=== PATIENT | female | born 1985 | race Caucasian/White ===

== ENCOUNTER 2021-12-20 15:28 | Emergency (ER) | payer OTHER, SELFPAY ==
--- NOTE | ~2021-12-20 | CT_ITS ---
EXAMINATION: CT ANGIOGRAM HEAD CT ANGIOGRAM NECK CLINICAL INFORMATION: Headaches. Dizziness. COMPARISON: None available. TECHNIQUE: Initial noncontrast vector control specialist imaging of the head and neck was performed. Noncontrast head CT was also performed. Test bolus sequences followed by intravenous administration 70 mL of Omnipaque 350. Helical imaging was performed in the axial plane from the aortic arch to the skull vertex. Delayed postcontrast imaging of the head was also performed. The data was processed at the distribution engineering technologist's workstation for generation of MIP sequences. Angled MIPs and volume rendered reformatted images were also generated at an offline 3D workstation. Stenoses are assessed in accordance with NASCET criteria unless otherwise indicated. This CT examination was performed using dose optimization techniques as appropriate, variously including the following: *Automated exposure control. *Adjustment of mA and/or kV according to patient size (this includes techniques or standardized protocols for targeted exams where dose is matched to indication/reason for exam; i.e. extremities or head). *Use of iterative reconstruction technique. DLP: 2559 mGy-cm FINDINGS: CT Head: There is no evidence of acute intracranial hemorrhage or edematous territorial infarction. There is no abnormal attenuation within the brain parenchyma. Reis-white matter differentiation is preserved. The ventricles are normal in size and configuration. No evidence for obstructive hydrocephalus. The cerebellar tonsils are mildly low lying, positioned 0.2 cm below the foramen magnum. The CSF space of the foramen magnum is maintained. No abnormal mass effect or midline shift. No extra-axial fluid collections. No pathologic intra-axial enhancement or regional oligemia. No acute soft tissue or osseous abnormalities. Mild mucosal thickening of the paranasal sinuses. The mastoid air cells and middle ear cavities are clear. Multifocal odontogenic enamel erosions. Prominent periapical lucencies associated with the maxillary right 2nd molar. CT Neck: The thyroid gland and remaining cervical soft tissues are within normal limits. No significant abnormalities of the cervical spine. CT Upper Chest: The visualized lung apices and upper mediastinum are within normal limits. Neck CTA: Aortic Arch: On this nongated study, the ascending aorta appears mildly prominent, measuring up to 3.8 cm in cross-sectional diameter. Normal contour and caliber of the aortic arch. Classic 3 vessel branching pattern of the aortic arch. Great Vessel Origins: No significant stenosis of the branch origins. Right Common Carotid Artery: No focal stenosis or occlusion. Cervical Right Internal Carotid Artery: Normal opacification without focal stenosis or occlusion. Left Common Carotid Artery: No focal stenosis or occlusion. Cervical Left Internal Carotid Artery: Normal opacification without focal stenosis or occlusion. Cervical Right Vertebral Artery: Co-dominant. No focal stenosis or occlusion. Cervical Left Vertebral Artery: Co-dominant. No focal stenosis or occlusion. Brain CTA: Intracranial Internal Carotid Arteries: No focal stenosis or occlusion. Right Anterior Cerebral Artery: Normal A1 segment. Normal opacification of the distal ROBB segments. Left Anterior Cerebral Artery: Normal A1 segment. Normal opacification of the distal ROBB segments. Anterior Communicating Artery: Normal. Right Middle Cerebral Artery: Normal M1 segment of the MCA without focal stenosis or occlusion. Multifocal concentric narrowings of the M2 and M3 branches without occlusion. Left Middle Cerebral Artery: Normal M1 segment of the MCA without focal stenosis or occlusion. Multifocal concentric narrowings of the M2 and M3 branches without occlusion. Right Vertebral Artery: Normal V4 segment. The posterior inferior cerebellar artery is not well opacified; however, there is no CT evidence of acute occlusion. Left Vertebral Artery: Normal V4 segment. Normal opacification of the proximal segments of the posterior inferior cerebellar artery. Basilar Artery: Normal without focal stenosis or occlusion. Normal appearance of the proximal superior cerebellar arteries. Right Posterior Cerebral Artery: Normal P1 segment. Moderate narrowing of the P3 segment without occlusion. Otherwise, normal Opacification of the distal CIGARETTE TESTER segments. Left Posterior Cerebral Artery: Normal P1 segment. Normal opacification of the distal CIGARETTE TESTER segments. Normal opacification of the superior sagittal, straight, transverse, and sigmoid sinuses. CT/CT angio head neck IMPRESSION: 1. No evidence of acute intracranial hemorrhage or edematous territorial infarction. 2. CTA of the head and neck without proximal occlusion or flow-limiting stenosis. 3. Multifocal moderate concentric narrowings of the M2 and M3 branches of the MCAs bilaterally and P3 segment of the right CIGARETTE TESTER. This appearance is nonspecific but may indicate an underlying vasculitis/vasculopathy. 4. The ascending aorta appears mildly prominent on this nongated study, measuring up to 3.8 cm in cross-sectional diameter. This may be better assessed on dedicated aortic evaluation.
--- NOTE | ~2021-12-20 | CT_ITS ---
EXAMINATION: CT ABDOMEN AND PELVIS WITH CONTRAST CLINICAL INFORMATION: Nausea vomiting and diarrhea COMPARISON: None TECHNIQUE: Multidetector volumetric images were obtained from the superior aspect of the liver through the pubic symphysis following administration 70 mL of Omnipaque 350 intravenous contrast. Sagittal and coronal reformatted images were obtained on the technologist's workstation. Oral contrast: No This CT examination was performed using dose optimization techniques as appropriate, variously including the following: *Automated exposure control *Adjustment of mA and/or kV according to patient size (this includes techniques or standardized protocols for targeted exams where dose is matched to indication/reason for exam; i.e. extremities or head) *Use of iterative reconstruction technique DLP: 1124.78+23.11 mGy-cm FINDINGS: LUNG BASES: The visualized lung bases are unremarkable. LIVER, GALLBLADDER, AND BILIARY TREE: The liver is normal in size, shape, and attenuation. No focal hepatic lesion or biliary ductal dilatation is present. The gallbladder is unremarkable with no evidence of radiopaque gallstones, gallbladder wall thickening, or obvious pericholecystic inflammatory changes. PANCREAS: Unremarkable. SPLEEN: Unremarkable. ADRENAL GLANDS: Unremarkable. KIDNEYS AND URETERS: The kidneys are normal in size, shape, and attenuation. No hydronephrosis, hydroureter, or calculi seen. No perinephric stranding. BLADDER: Unremarkable. GASTROINTESTINAL TRACT: The small and large bowel are unremarkable. The appendix is unremarkable. MESENTERY: No free air or free fluid. No inflammation. ABDOMINAL WALL: No significant hernia is appreciated. LYMPH NODES: Normal. VASCULAR: Unremarkable. PELVIC VISCERA: Uterus is anteverted. Right adnexal cyst measuring 5.9 cm. Density measurement 7 Hounsfield units, simple fluid. No calcification mass or inflammatory change present. No fluid in the cul-de-sac. OSSEOUS STRUCTURES: Unremarkable. CT/CT abdomen pelvis w IV con IMPRESSION: 1. No acute abnormality CT scan abdomen pelvis. 2. 5.9 cm right adnexal fluid density cyst. Fleischner guidelines were followed.
[2021-12-20 16:22] VITALS: BP 169/97; PULSE 68; RESP 18; TEMP 36.7; O2SAT 98; BMI 41.1
[2021-12-20 16:39] LABS: MANUAL DIFF FLAG NO
[2021-12-20 16:42] LABS: Basophils Absolute Auto 0.1 X10*3/uL (0.0-0.2); Basophils Percent Auto 0.3 % (0-2); Eosinophils Absolute Auto 0.1 X10*3/uL (0.0-0.4); Eosinophils Percent Auto 0.2 % (0-4); Hematocrit 43.6 % (37.0-47.0); Hemoglobin 14.8 g/dl (12.0-16.0); Imm Gran Abs Auto 0.12 X10*3/uL (0.00-0.03); Imm Gran Pct Auto 0.5 % (0.0-0.4); Lymphocytes Absolute Auto 1.5 X10*3/uL (1.2-4.9); Lymphocytes Percent Auto 6.7 % (20-40); Mean Corpuscular HGB Conc 33.9 g/dl (31.0-35.0); Mean Corpuscular Hemoglobin 29.9 pg (27.0-33.0); Mean Corpuscular Volume 88.1 fL (80.0-98.0); Mean Platelet Volume 9.6 fL (9.4-12.3); Monocytes Absolute Auto 0.5 X10*3/uL (0.1-1.2); Monocytes Percent Auto 2.4 % (2-11); Neutrophils Absolute Auto 19.8 x10*3/uL (2.0-8.3); Neutrophils Percent Auto 89.9 % (45-73); Platelet Count 365 X10*3/uL (160-400); Red Blood Count 4.95 X10*6/uL (4.20-5.50); Red Cell Distribution Width 13.4 % (11.0-16.0)
[2021-12-20 16:58] LABS: Alanine Aminotransferase 16 U/L (0-31); Albumin Level 4.6 g/dL (3.5-5.0); Alkaline Phosphatase 78 U/L (39-117); Anion Gap 16 (12-20); Aspartate Amino Transferase 16 U/L (5-31); Bilirubin Total 0.6 mg/dL (0.0-1.0); Blood Urea Nitrogen 15 mg/dL (9-16); Calcium 9.8 mg/dL (8.4-10.2); Carbon Dioxide 19 mmol/L (22-29); Chloride 107 mmol/L (96-108); Creatinine Clr Calc Pharmacy 131.4; Estimated Glomerular Filt Rate > 60; Glucose Random 116 mg/dL (60-115); Potassium 4.2 mmol/L (3.3-5.1); Sodium 138 mmol/L (135-145); Total Protein 7.6 g/dL (6.5-8.0)
[2021-12-20 17:01] LABS: COVID-19 Test Negative (Negative); IDNOW Serial# 16C4AD1C; Influenza A Negative (Negative); Influenza B2 Negative (Negative)
[2021-12-20] MEDS: Ibuprofen 600 MG TABLET PO (19:20)
[2021-12-20] MEDS: Acetaminophen 325 MG TABLET 650 MG PO (19:20)
--- NOTE | 2021-12-20 19:51 | ED_ITS ---
HPI - General Adult General Chief complaint: Headache Stated complaint: headaches/vomiting/body aches Time Seen by Provider: 12/20/21 19:45 Source: patient Mode of arrival: ambulatory Limitations: no limitations History of Present Illness HPI narrative: 36-year-old female presents with approximately 1 week of headache, nausea, vomiting, diarrhea and abdominal pain. She was evaluated at [facility] approximately ago patient states her symptoms have not gotten any better. Onset (ago): week(s) (One) Location: head and abdomen Radiation: non-radiation Severity: moderate Severity scale (1-10): 7 Quality: aching and constant Pain Consistency: constant Relieving factors: none Associated symptoms: headaches, malaise and nausea/vomiting Treatments prior to arrival: none Related Data Previous Rx's Medication Instructions Recorded diphenhydramine HCl 25 mg capsule 50 mg PO Q6H PRN #40 cap 12/21/21 (Benadryl) metoclopramide HCl 10 mg tablet 10 mg PO Q6H PRN #20 tab 12/21/21 (Reglan) Allergies Allergy/AdvReac Type Severity Reaction Status Date / Time amoxicillin Allergy Unknown Verified 12/20/21 16:27 Penicillins Allergy Unknown Verified 12/20/21 16:27 vancomycin Allergy Unknown Verified 12/20/21 16:27 Review of Systems Review of Systems: Constitutional: No Weight loss, No Fever, No Chills, No Night Sweats, positive Fatigue, No Malaise ENT/Mouth: No Hearing loss, No Ear Pain, No Nasal Congestion, No Sinus Pain, No Hoarseness, No sore throat, No Rhinorrhea, No Swallowing Difficulty Eyes: No Eye Pain, No Swelling, No Redness, No Foreign Body, No Discharge, No Vision Changes Cardiovascular: No Chest Pain, No SOB, No Dyspnea on Exertion, No Orthopnea, No Edema, No Palpitations Respiratory: No Cough, No Sputum, No Wheezing, No Smoke Exposure, No Dyspnea Gastrointestinal: Positive Nausea, Positive Vomiting, positive Diarrhea, positive abdominal Pain, No Hematochezia, No Melena Genitourinary: no irregular bleeding, No Dysuria, No Urinary Frequency, No H ematuria, No Urinary Incontinence, No Urgency, No Flank Pain, No Urinary Flow Changes, No Hesitancy Musculoskeletal: No joint pain, No Myalgias, No Joint Swelling Skin: No Skin Lesions, No rash Neuro: No Weakness, No Numbness, No Paresthesias, No Loss of Consciousness, No Dizziness, positive Headache Psych: No Anxiety/Panic, No Depression, No SI/HI/AH/VH, No Social Issues Heme/Lymph: No Bruising, No Bleeding,No Lymphadenopathy Endocrine: No Polyuria, No Polydipsia, No Temperature Intolerance Yes all other systems are reviewed and are negative [facility] Past Medical History Attestation statement: The following information was validated with the patient. Source: old records reviewed Medical History Gestational diabetes Social History Social History Advance Directives: No Physical Exam ED Vital Signs: Vital Signs - 24 hr 12/20/21 16:22 12/20/21 22:30 Temperature 98.1 F 98.6 F Pulse Rate 68 60 Respiratory Rate 18 18 Blood Pressure 169/97 H 152/93 H Pulse Oximetry 98 98 BMI result Body Mass Index 41.1 Appearance: Alert. Oriented X3. Moderate distress. Eyes: Pupils equal, round and reactive to light. Sclera nonicteric. ENT: Pharynx normal. Moist mucous membranes. Neck: Normal inspection. Neck supple. No nuchal rigidity. No tenderness to palpation. CVS: Normal heart rate and rhythm. Pulses normal. Respiratory: No respiratory distress. Breath sounds normal. Abdomen: Soft and diffusely tender. Greater right lower quadrant than left. Skin: Skin warm and dry. Normal skin color. Normal skin turgor. Extremities: No lower extremity edema. Gait well-balanced well coordinated. Neuro: No motor deficit. No sensory deficit. Cranial nerves 2-12 intact. Course Course Course Narrative: 36-year-old female presents with 1 week of headaches, nausea, vomiting, diarrhea, and fatigue. Was worked up at [facility] with negative findings approximately 1 week ago. Patient is sitting cross-legged on the stretcher with her arms resting on her knees. She does appear tired but is able to answer in complete sentences. Patient is articulate, in [employer], has been properly vaccinated for meningitis, has had 2 COVID shots but did decline the booster. Patient states that the headaches have been the worst in her life, states that she can not function. Labs drawn while patient was in the emergency department waiting room, elevated white count of 22. Will add additional labs ESR, CRP, troponin, EKG, at a CT of head neck angio with CT abdomen pelvis. Medical records are pending from [facility]. Will give 2 L of fluid at this time. Although patient's blood pressure is elevated could be stress related. While patient's elevated white count is 22, patient is afebrile 98.1 oral and heart rate is 60. Patient does not take any rate controlling medications. 20:10 medical records obtained. Date of visit 12/14/2021. Patient was evaluated headache after bilateral ear infections. Patient had nausea vomiting and photophobia with phonophobia, consistent with her history a migraine headache. Patient had a CT and CT angiogram of head and neck, all of which are negative. Upon discharge from [facility] patient's headache had resolved. Labs elevated white count of 11.[address] of the head indicated no acute intracranial large vessel occlusion, unremarkable CTA of neck, mild prominence of the pulmonary artery which can be seen in patients with pulmonary artery hypertension, mild cerebellar ectopia with partially empty sella turcica 22:30 CT abdomen pelvis negative for acute findings. There is a approximately 6 cm adnexal cyst on the right side. This is a known cysts patient. She does understand that she must follow-up with billet sawyer for possible cystectomy. 23:01 CT a head neck indicates vasculitis but clinically this does not fit. ESR CRP is not elevated. Clinical picture more consistent with viral meningitis. Detailed description lumbar puncture to patient with myself and Dr. Sherman. 23:45 Dr. Sherman at bedside with this OFFSET ASSISTANT PRESS OPERATOR for lumbar puncture. LP complete without any difficulty. Consent obtained prior to procedure. 01:34 CSF negative for acute findings. Plan of care is to discharge home complex migraine syndrome, viral syndrome. Recommended the patient follow-up with primary care physician and neurologist.Patient verbalized understanding of and agrees to plan of care to discharge home. Verbalized understanding of signs and symptoms indicating need for emergent intervention Procedures Lumbar Puncture Time Out Performed: Yes Patient Position: upright Skin Prep: Povidone-Iodine 1% Local Anesthetic: lidocaine 2% Amount of anesthesia used (mL): 4 Spinal Needle Gauge: 22G Interspace Used: L4-L5 Fluid Initially Obtained: clear Complications: none Medical Decision Making Differential Diagnosis Differential Diagnosis: Complex migraine, viral syndrome, meningitis Medical Records Medical records reviewed: Yes I reviewed the patient's medical records. Lab Data Lab results reviewed: Yes I reviewed the patient's lab results. Result diagrams: 12/20/21 16:26 12/20/21 16:26 Labs: Lab Results 12/20/21 12/20/21 12/20/21 Range/Units 16:26 16:26 16:26 WBC 22.0 H (4.8-10.8) X10*3/uL RBC 4.95 (4.20-5.50) X10*6/uL Hgb 14.8 (12.0-16.0) g/dl Hct 43.6 (37.0-47.0) % MCV 88.1 (80.0-98.0) fL MCH 29.9 (27.0-33.0) pg MCHC 33.9 (31.0-35.0) g/dl RDW 13.4 (11.0-16.0) % Plt Count 365 (160-400) X10*3/uL MPV 9.6 (9.4-12.3) fL Immature Gran % (Auto) 0.5 H (0.0-0.4) % Neut % (Auto) 89.9 H (45-73) % Lymph % (Auto) 6.7 L (20-40) % [place] % (Auto) 2.4 (2-11) % Eos % (Auto) 0.2 (0-4) % Baso % (Auto) 0.3 (0-2) % Lymph # (Auto) 1.5 (1.2-4.9) X10*3/uL [place] # (Auto) 0.5 (0.1-1.2) X10*3/uL Eos # (Auto) 0.1 (0.0-0.4) X10*3/uL Baso # (Auto) 0.1 (0.0-0.2) X10*3/uL Abs Immat Gran (auto) 0.12 H (0.00-0.03) X10*3/uL Absolute Neuts (auto) 19.8 H (2.0-8.3) x10*3/uL Absolute Nucleated RBC 0.000 (0.0-0.012) X10*3/uL Nucleated RBC % (auto) 0.0 (0.0-0.2) /100WBC ESR (0-20) MM/HR PT (9.9-13.0) SEC INR (0.9-1.1) APTT (24.1-38.0) SEC Sodium 138 (135-145) mmol/L Potassium 4.2 (3.3-5.1) mmol/L Chloride 107 (96-108) mmol/L Carbon Dioxide 19 L (22-29) mmol/L Anion Gap 16 (12-20) BUN 15 (9-16) mg/dL Creatinine 0.72 (0.5-1.4) mg/dL Estim Creat Clear Calc 131.4 Estimated GFR > 60 Random Glucose 116 H (60-115) mg/dL Lactic Acid (0.5-2.0) mmol/L Calcium 9.8 (8.4-10.2) mg/dL Magnesium (1.6-2.6) mg/dL Total Bilirubin 0.6 (0.0-1.0) mg/dL AST 16 (5-31) U/L ALT 16 (0-31) U/L Alkaline Phosphatase 78 (39-117) U/L Troponin I High Sens (<3.5-17.0) ng/L C-Reactive Protein (< or = 0.50) mg/dL Total Protein 7.6 (6.5-8.0) g/dL Albumin 4.6 (3.5-5.0) g/dL CSF Tube Number CSF Volume ML CSF Appearance CSF Color CSF WBC MM*3 CSF RBC MM*3 CSF Lymphocytes % CSF Monocytes % % CSF Appearance (b) CSF Glucose mg/dL CSF Total Protein (15-45) mg/dL COVID-19 (ANJEL) (Negative) COVID-19 Clin Com Influenza Type A (TORRIE) Negative (Negative) Influenza Type B (TORRIE) Negative (Negative) Influenza A & B Note See Note 12/20/21 12/20/21 12/20/21 Range/Units 16:26 22:09 22:09 WBC (4.8-10.8) X10*3/uL RBC (4.20-5.50) X10*6/uL Hgb (12.0-16.0) g/dl Hct (37.0-47.0) % MCV (80.0-98.0) fL MCH (27.0-33.0) pg MCHC (31.0-35.0) g/dl RDW (11.0-16.0) % Plt Count (160-400) X10*3/uL MPV (9.4-12.3) fL Immature Gran % (Auto) (0.0-0.4) % Neut % (Auto) (45-73) % Lymph % (Auto) (20-40) % [place] % (Auto) (2-11) % Eos % (Auto) (0-4) % Baso % (Auto) (0-2) % Lymph # (Auto) (1.2-4.9) X10*3/uL [place] # (Auto) (0.1-1.2) X10*3/uL Eos # (Auto) (0.0-0.4) X10*3/uL Baso # (Auto) (0.0-0.2) X10*3/uL Abs Immat Gran (auto) (0.00-0.03) X10*3/uL Absolute Neuts (auto) (2.0-8.3) x10*3/uL Absolute Nucleated RBC (0.0-0.012) X10*3/uL Nucleated RBC % (auto) (0.0-0.2) /100WBC ESR (0-20) MM/HR PT 12.3 (9.9-13.0) SEC INR 1.1 (0.9-1.1) APTT 37.9 (24.1-38.0) SEC Sodium (135-145) mmol/L Potassium (3.3-5.1) mmol/L Chloride (96-108) mmol/L Carbon Dioxide (22-29) mmol/L Anion Gap (12-20) BUN (9-16) mg/dL Creatinine (0.5-1.4) mg/dL Estim Creat Clear Calc Estimated GFR Random Glucose (60-115) mg/dL Lactic Acid 1.8 (0.5-2.0) mmol/L Calcium (8.4-10.2) mg/dL Magnesium (1.6-2.6) mg/dL Total Bilirubin (0.0-1.0) mg/dL AST (5-31) U/L ALT (0-31) U/L Alkaline Phosphatase (39-117) U/L Troponin I High Sens (<3.5-17.0) ng/L C-Reactive Protein (< or = 0.50) mg/dL Total Protein (6.5-8.0) g/dL Albumin (3.5-5.0) g/dL CSF Tube Number CSF Volume ML CSF Appearance CSF Color CSF WBC MM*3 CSF RBC MM*3 CSF Lymphocytes % CSF Monocytes % % CSF Appearance (b) CSF Glucose mg/dL CSF Total Protein (15-45) mg/dL COVID-19 (ANJEL) Negative (Negative) COVID-19 Clin Com See Note Influenza Type A (TORRIE) (Negative) Influenza Type B (TORRIE) (Negative) Influenza A & B Note 12/20/21 12/20/21 12/20/21 Range/Units 22:09 22:09 22:09 WBC (4.8-10.8) X10*3/uL RBC (4.20-5.50) X10*6/uL Hgb (12.0-16.0) g/dl Hct (37.0-47.0) % MCV (80.0-98.0) fL MCH (27.0-33.0) pg MCHC (31.0-35.0) g/dl RDW (11.0-16.0) % Plt Count (160-400) X10*3/uL MPV (9.4-12.3) fL Immature Gran % (Auto) (0.0-0.4) % Neut % (Auto) (45-73) % Lymph % (Auto) (20-40) % [place] % (Auto) (2-11) % Eos % (Auto) (0-4) % Baso % (Auto) (0-2) % Lymph # (Auto) (1.2-4.9) X10*3/uL [place] # (Auto) (0.1-1.2) X10*3/uL Eos # (Auto) (0.0-0.4) X10*3/uL Baso # (Auto) (0.0-0.2) X10*3/uL Abs Immat Gran (auto) (0.00-0.03) X10*3/uL Absolute Neuts (auto) (2.0-8.3) x10*3/uL Absolute Nucleated RBC (0.0-0.012) X10*3/uL Nucleated RBC % (auto) (0.0-0.2) /100WBC ESR 13 (0-20) MM/HR PT (9.9-13.0) SEC INR (0.9-1.1) APTT (24.1-38.0) SEC Sodium (135-145) mmol/L Potassium (3.3-5.1) mmol/L Chloride (96-108) mmol/L Carbon Dioxide (22-29) mmol/L Anion Gap (12-20) BUN (9-16) mg/dL Creatinine (0.5-1.4) mg/dL Estim Creat Clear Calc Estimated GFR Random Glucose (60-115) mg/dL Lactic Acid (0.5-2.0) mmol/L Calcium (8.4-10.2) mg/dL Magnesium 2.2 (1.6-2.6) mg/dL Total Bilirubin (0.0-1.0) mg/dL AST (5-31) U/L ALT (0-31) U/L Alkaline Phosphatase (39-117) U/L Troponin I High Sens < 3.5 (<3.5-17.0) ng/L C-Reactive Protein 1.28 H (< or = 0.50) mg/dL Total Protein (6.5-8.0) g/dL Albumin (3.5-5.0) g/dL CSF Tube Number CSF Volume ML CSF Appearance CSF Color CSF WBC MM*3 CSF RBC MM*3 CSF Lymphocytes % CSF Monocytes % % CSF Appearance (b) CSF Glucose mg/dL CSF Total Protein (15-45) mg/dL COVID-19 (ANJEL) (Negative) COVID-19 Clin Com Influenza Type A (TORRIE) (Negative) Influenza Type B (TORRIE) (Negative) Influenza A & B Note 12/21/21 12/21/21 Range/Units 00:02 Unknown WBC (4.8-10.8) X10*3/uL RBC (4.20-5.50) X10*6/uL Hgb (12.0-16.0) g/dl Hct (37.0-47.0) % MCV (80.0-98.0) fL MCH (27.0-33.0) pg MCHC (31.0-35.0) g/dl RDW (11.0-16.0) % Plt Count (160-400) X10*3/uL MPV (9.4-12.3) fL Immature Gran % (Auto) (0.0-0.4) % Neut % (Auto) (45-73) % Lymph % (Auto) (20-40) % [place] % (Auto) (2-11) % Eos % (Auto) (0-4) % Baso % (Auto) (0-2) % Lymph # (Auto) (1.2-4.9) X10*3/uL [place] # (Auto) (0.1-1.2) X10*3/uL Eos # (Auto) (0.0-0.4) X10*3/uL Baso # (Auto) (0.0-0.2) X10*3/uL Abs Immat Gran (auto) (0.00-0.03) X10*3/uL Absolute Neuts (auto) (2.0-8.3) x10*3/uL Absolute Nucleated RBC (0.0-0.012) X10*3/uL Nucleated RBC % (auto) (0.0-0.2) /100WBC ESR (0-20) MM/HR PT (9.9-13.0) SEC INR (0.9-1.1) APTT (24.1-38.0) SEC Sodium (135-145) mmol/L Potassium (3.3-5.1) mmol/L Chloride (96-108) mmol/L Carbon Dioxide (22-29) mmol/L Anion Gap (12-20) BUN (9-16) mg/dL Creatinine (0.5-1.4) mg/dL Estim Creat Clear Calc Estimated GFR Random Glucose (60-115) mg/dL Lactic Acid (0.5-2.0) mmol/L Calcium (8.4-10.2) mg/dL Magnesium (1.6-2.6) mg/dL Total Bilirubin (0.0-1.0) mg/dL AST (5-31) U/L ALT (0-31) U/L Alkaline Phosphatase (39-117) U/L Troponin I High Sens (<3.5-17.0) ng/L C-Reactive Protein (< or = 0.50) mg/dL Total Protein (6.5-8.0) g/dL Albumin (3.5-5.0) g/dL CSF Tube Number 1 4 CSF Volume 3.0 ML CSF Appearance CLEAR CSF Color COLORLESS CSF WBC 3 MM*3 CSF RBC 2 MM*3 CSF Lymphocytes 50 % CSF Monocytes % 50 % CSF Appearance (b) Clear, Colorless CSF Glucose 66 mg/dL CSF Total Protein 43.7 (15-45) mg/dL COVID-19 (ANJEL) (Negative) COVID-19 Clin Com Influenza Type A (TORRIE) (Negative) Influenza Type B (TORRIE) (Negative) Influenza A & B Note Imaging Data CTA head neck: Attestation: I personally reviewed and interpreted this imaging study as follows: Radiologist's impression: FINDINGS: CT Head: There is no evidence of acute intracranial hemorrhage or edematous territorial infarction. There is no abnormal attenuation within the brain parenchyma. Reis-white matter differentiation is preserved. The ventricles are normal in size and configuration. No evidence for obstructive hydrocephalus. The cerebellar tonsils are mildly low lying, positioned 0.2 cm below the foramen magnum. The CSF space of the foramen magnum is maintained.? No abnormal mass effect or midline shift. No extra-axial fluid collections. No pathologic intra-axial enhancement or regional oligemia. No acute soft tissue or osseous abnormalities. Mild mucosal thickening of the paranasal sinuses. The mastoid air cells and middle ear cavities are clear. Multifocal odontogenic enamel erosions. Prominent periapical lucencies associated with the maxillary right 2nd molar. CT Neck: The thyroid gland and remaining cervical soft tissues are within normal limits. No significant abnormalities of the cervical spine. CT Upper Chest: The visualized lung apices and upper mediastinum are within normal limits. Neck CTA: Aortic Arch: On this nongated study, the ascending aorta appears mildly prominent, measuring up to 3.8 cm in cross-sectional diameter. Normal contour and caliber of the aortic arch. Classic 3 vessel branching pattern of the aortic arch. Great Vessel Origins: No significant stenosis of the branch origins. Right Common Carotid Artery: No focal stenosis or occlusion. Cervical Right Internal Carotid Artery: Normal opacification without focal stenosis or occlusion. Left Common Carotid Artery: No focal stenosis or occlusion. Cervical Left Internal Carotid Artery: Normal opacification without focal stenosis or occlusion. Cervical Right Vertebral Artery: Co-dominant. No focal stenosis or occlusion. Cervical Left Vertebral Artery: Co-dominant. No focal stenosis or occlusion. Brain CTA: Intracranial Internal Carotid Arteries: No focal stenosis or occlusion. Right Anterior Cerebral Artery: Normal A1 segment. Normal opacification of the distal ROBB segments. Left Anterior Cerebral Artery: Normal A1 segment. Normal opacification of the distal ROBB segments. Anterior Communicating Artery: Normal. Right Middle Cerebral Artery: Normal M1 segment of the MCA without focal stenosis or occlusion. Multifocal concentric narrowings of the M2 and M3 branches without occlusion. Left Middle Cerebral Artery: Normal M1 segment of the MCA without focal stenosis or occlusion. Multifocal concentric narrowings of the M2 and M3 branches without occlusion. Right Vertebral Artery: Normal V4 segment. The posterior inferior cerebellar artery is not well opacified; however, there is no CT evidence of acute occlusion. Left Vertebral Artery: Normal V4 segment. Normal opacification of the proximal segments of the posterior inferior cerebellar artery. Basilar Artery: Normal without focal stenosis or occlusion. Normal appearance of the proximal superior cerebellar arteries. Right Posterior Cerebral Artery: Normal P1 segment. Moderate narrowing of the P3 segment without occlusion. Otherwise, normal Opacification of the distal CAMERA OPERATOR segments. Left Posterior Cerebral Artery: Normal P1 segment. Normal opacification of the distal CAMERA OPERATOR segments. Normal opacification of the superior sagittal, straight, transverse, and sigmoid sinuses. CT/CT angio head neck IMPRESSION: 1. No evidence of acute intracranial hemorrhage or edematous territorial infarction. ? 2. CTA of the head and neck without proximal occlusion or flow-limiting stenosis. ? 3. Multifocal moderate concentric narrowings of the M2 and M3 branches of the MCAs bilaterally and P3 segment of the right CAMERA OPERATOR. This appearance is nonspecific but may indicate an underlying vasculitis/vasculopathy. ? 4. The ascending aorta appears mildly prominent on this nongated study, measuring up to 3.8 cm in cross-sectional diameter. This may be better assessed on dedicated aortic evaluation. CT abdomen pelvis with contrast: Attestation: I personally reviewed and interpreted this imaging study as follows: Radiologist's impression: EXAMINATION: CT ABDOMEN AND PELVIS WITH CONTRAST? CLINICAL INFORMATION: Nausea vomiting and diarrhea? COMPARISON: None? TECHNIQUE: Multidetector volumetric images were obtained from the superior aspect of the liver through the pubic symphysis following administration 70 mL of Omnipaque 350 intravenous contrast. Sagittal and coronal reformatted images were obtained on the technologist's workstation.? Oral contrast: No This CT examination was performed using dose optimization techniques as appropriate, variously including the following: *Automated exposure control *Adjustment of mA and/or kV according to patient size (this includes techniques or standardized protocols for targeted exams where dose is matched to indication/reason for exam; i.e. extremities or head) *Use of iterative reconstruction technique DLP: 1124.78+23.11 mGy-cm FINDINGS: LUNG BASES: The visualized lung bases are unremarkable.? LIVER, GALLBLADDER, AND BILIARY TREE: The liver is normal in size, shape, and attenuation. No focal hepatic lesion or biliary ductal dilatation is present. The gallbladder is unremarkable with no evidence of radiopaque gallstones, gallbladder wall thickening, or obvious pericholecystic inflammatory changes.? PANCREAS: Unremarkable.? SPLEEN: Unremarkable.? ADRENAL GLANDS: Unremarkable.? KIDNEYS AND URETERS: The kidneys are normal in size, shape, and attenuation. No hydronephrosis, hydroureter, or calculi seen. No perinephric stranding. ? BLADDER: Unremarkable.? GASTROINTESTINAL TRACT: The small and large bowel are unremarkable. The appendix is unremarkable. MESENTERY: No free air or free fluid. No inflammation. ABDOMINAL WALL: No significant hernia is appreciated.? LYMPH NODES: Normal. VASCULAR: Unremarkable. PELVIC VISCERA: Uterus is anteverted. Right adnexal cyst measuring 5.9 cm. Density measurement 7 Hounsfield units, simple fluid. No calcification mass or inflammatory change present. No fluid in the cul-de-sac.? OSSEOUS STRUCTURES: Unremarkable.? CT/CT abdomen pelvis w con IMPRESSION: ? 1. No acute abnormality CT scan abdomen pelvis. 2. 5.9 cm right adnexal fluid density cyst.? ? Fleischner guidelines were followed. ECG Data Attestation: I personally reviewed and interpreted this ECG as follows: Prior ECG tracings: not available for review Interpretation: Vent. rate 61 BPM LA interval 132 ms QRS duration 88 ms QT/QTc 426/428 ms P-R-T axes 59 68 4 Normal sinus rhythm with sinus arrhythmia Possible Left atrial enlargement T wave abnormality, consider anterior ischemia Abnormal ECG No previous ECGs available 20-DEC-2021 20:31:11 Critical Care Time Critical Care Time Critical Care Time: Yes Total Critical Care Time: 65 Attestation: I have personally provided critical care time exclusive of time spent on separately billable procedures. Time includes review of laboratory data, radiology results, discussion with consultants, and monitoring for potential decompensation. Interventions were performed as documented. Discharge Plan Discharge Clinical Impression: Acute viral syndrome, Encounter for lumbar puncture Migraine Qualifiers: Migraine type: with aura Status migrainosus presence: with status migrainosus Intractability: intractable Qualified Code(s): G43.111 - Migraine with aura, intractable, with status migrainosus Patient Disposition: Home, Self-Care Instructions: Migraine Headache (ED), Viral Syndrome (ED), Lumbar Puncture (ED) Additional Instructions: Your evaluated for complex migraine. Lumbar puncture was negative for findings consistent with meningitis. CT angiogram of head and neck shows some bilaterally equal narrowing is of M2 and M3 branches of the MCA. This is a nonspecific finding but may indicate vasculitis or vasculopathy. Is highly recommended that you follow-up with a neurologist. Your ascending aorta measures 3.8 cm, you must follow-up with primary care physician for a dedicated aortic evaluation Please take migraine cocktail of Reglan 10 mg, Benadryl 50 mg, and Excedrin migraine 2 tablets every 6 hours as needed for migraine headaches. Thank you for choosing this emergency department for evaluation. Please follow-up with primary care physician as needed. Return to the emergency department for any new, concerning, or worsening symptoms. Prescriptions: New metoclopramide HCl [Reglan] 10 mg tablet 10 mg PO Q6H PRN (Reason: Migraines) Qty: 20 0RF diphenhydramine HCl [Benadryl] 25 mg capsule 50 mg PO Q6H PRN (Reason: Migraines) Qty: 40 0RF Referrals: Adan Mirza MD [Physician] - (Migraine headaches, concentric narrowings of M2 M3 branches of the MCAs bilaterally)
--- NOTE | 2021-12-20 19:52 | ECG_ITS ---
Test Reason : Headache Blood Pressure : / mmHG Vent. Rate : 061 BPM Atrial Rate : 061 BPM P-R Int : 132 ms QRS Dur : 088 ms QT Int : 426 ms P-R-T Axes : 059 068 049 degrees QTc Int : 428 ms Normal sinus rhythm with sinus arrhythmia Possible Left atrial enlargement T wave abnormality, consider anterior ischemia Abnormal ECG No previous ECGs available Referred By: Isabel Castro Electronically Signed By:Osman Ogden
[2021-12-20] MEDS: iohexoL 350 MG/ML 100 ML INFUS..BTL IV (21:43)
[2021-12-20] MEDS: SUMAtriptan succinate 6 MG/0.5 ML VIAL SUBCUT (21:58)
[2021-12-20] MEDS: 0.9 % Sodium Chloride 1,000 ML 999 ML IVCONT (22:03)
[2021-12-20 22:24] LABS: Lactic Acid 1.8 mmol/L (0.5-2.0)
[2021-12-20 22:27] LABS: INTERNATIONAL NORM RATIO 1.1 (0.9-1.1); Prothrombin Time 12.3 SEC (9.9-13.0)
[2021-12-20 22:30] VITALS: BP 152/93; PULSE 60; RESP 18; TEMP 37; O2SAT 98
[2021-12-20 22:30] LABS: Partial Thromboplastin Time 37.9 SEC (24.1-38.0)
[2021-12-20 22:37] LABS: C Reactive Protein 1.28 mg/dL (< or = 0.50); Magnesium 2.2 mg/dL (1.6-2.6)
[2021-12-20 22:43] LABS: Troponin-I High Sensitivity < 3.5 ng/L (<3.5-17.0)
[2021-12-20 22:57] LABS: Erythrocyte Sedimentation Rate 13 MM/HR (0-20)
[2021-12-20] MEDS: Butalb/Acetamin/Caff 50/325/40 TABLET 1 TAB PO (23:16)
[2021-12-21 00:34] LABS: CSF Appearance Clear, Colorless; CSF Tube # 1
[2021-12-21 00:45] LABS: Glucose CSF 66 mg/dL; Total Protein CSF 43.7 mg/dL (15-45)
[2021-12-21 01:17] LABS: Appearance CSF CLEAR
[2021-12-21 01:18] LABS: CSF Monos 50 %; CSF Tube # 4; Color CSF COLORLESS; Lymphocytes CSF 50 %; Red Blood Cell CSF 2 MM*3; White Blood Cell CSF 3 MM*3
[2021-12-21 01:46] LABS: Cryptococcus neoformans/gattii Not Detected (Not Detect.); Enterovirus Not Detected (Not Detect.); Escherichia coli K1 Not Detected (Not Detect.); Haemophilus influenzae Not Detected (Not Detect.); Herpes simplex virus 1 Not Detected (Not Detect.)
[2021-12-21 01:47] LABS: Herpes simplex virus 2 Not Detected (Not Detect.); Human herpesvirus 6 Not Detected (Not Detect.); Human parechovirus Not Detected (Not Detect.); Listeria monocytogenes Not Detected (Not Detect.); Neisseria meningitidis Not Detected (Not Detect.); Streptococcus agalactiae Not Detected (Not Detect.); Streptococcus pneumoniae Not Detected (Not Detect.); Varicella zoster virus Not Detected (Not Detect.)
[2021-12-21 02:14] VITALS: BP 149/82; PULSE 63; RESP 16; O2SAT 98
[2021-12-21] MEDS: dexAMETHasone sod phosphate 10 MG/ML VIAL IVPUSH (02:18)
== END 2021-12-21 02:31 | disposition home or self-care (01) ==
PROVIDERS: Nurse Practitioner Family; Emergency Provider Emergency Medicine Emergency Medical Services; PCP Pediatrics
DX: G43.111 Migraine with aura, intractable, with status migrainosus (principal); B34.9 Viral infection, unspecified; Z20.822 Contact with and (suspected) exposure to COVID-19
CPT/HCPCS: 36415; 62270; 70496; 70498; 74177; 80053; 82945; 83605; 83735; 84157; 84484; 85025; 85610; 85652; 85730; 86140; 87015; 87040; 87070; 87205; 87483; 87502; 87635; 89051; 93005; 96361; 96372; 96374; 96375; 99284; 99291; J1100; J3030; Q9967

== ENCOUNTER → 2024-04-03 13:05 | Outpatient (BNVA) | payer SELFPAY | PROVIDERS: PCP Pediatrics | DX: Z02.83 Encounter for blood-alcohol and blood-drug test (principal) ==